=== PATIENT | female | born 1970 | race Caucasian/White ===

== ENCOUNTER 2019-01-17 04:57 | Inpatient (IN) | payer OTHER ==
[2019-01-17] MEDS ORDERED: BISACODYL (EC) 5 MG TAB PO (06:00)
[2019-01-17] MEDS ORDERED: NACL 0.9% 3 ML SYG IV (06:00)
[2019-01-17] MEDS ORDERED: NITROGLYCERIN (SL) 0.4 MG TAB SL (06:00)
[2019-01-17] MEDS ORDERED: DOCUSATE SODIUM 100 MG CAP PO (06:00)
[2019-01-17 08:19] LABS: ADD MAN DIFF? NO
[2019-01-17 08:21] LABS: BASOPHILS % 0.6 % (0.0-2.0); EOSINOPHILS # 0.2 10^3/ul (0.0-0.5); EOSINOPHILS % 3.4 % (0.0-7.0); HEMATOCRIT 37.5 % (37.0-47.0); HEMOGLOBIN 11.9 g/dl (12.0-16.0); LYMPHOCYTES # 2.5 10^3/ul (0.8-2.9); LYMPHOCYTES % 35.1 % (15.0-51.0); MEAN CORPUSCULAR HEMOGLOBIN 27.9 pg (29.0-33.0); MEAN CORPUSCULAR HGB CONC 31.7 g/dl (32.0-37.0); MEAN CORPUSCULAR VOLUME 87.8 fl (82.0-101.0); MEAN PLATELET VOLUME 9.3 fl (7.4-10.4); MONOCYTE # 0.3 10^3/ul (0.3-0.9); MONOCYTES % 4.9 % (0.0-11.0); NEUTROPHIL # 3.9 10^3/ul (1.6-7.5); NEUTROPHILS % 55.7 % (39.0-77.0); PLATELET COUNT 273 10^3/UL (140-415); RED BLOOD COUNT 4.27 10^6/ul (4.20-5.40); RED CELL DISTRIBUTION WIDTH 13.5 % (11.5-14.5)
[2019-01-17 08:32] LABS: HEMOGLOBIN A1C 6.8 % (0-5.9)
[2019-01-17] MEDS: CHOLECALCIFEROL 1,000 UNIT TAB PO (08:37)
[2019-01-17] MEDS: ACETAMINOPHEN 325 MG TAB PO ×2 (08:37→18:28)
[2019-01-17] MEDS: LISINOPRIL 10 MG TAB PO (08:37)
[2019-01-17 08:49] LABS: ALANINE AMINOTRANSFERASE 47 IU/L (13-69); ALBUMIN/GLOBULIN RATIO 1.33; ALKALINE PHOSPHATASE 70 IU/L (42-121); ANION GAP 9 (5-13); ASPARTATE AMINO TRANSFERASE 33 IU/L (15-46); BILIRUBIN,INDIRECT 0.4 mg/dl (0-1.1); BILIRUBIN,TOTAL 0.4 mg/dl (0.2-1.3); BLOOD UREA NITROGEN 14 mg/dl (7-20); CALCIUM 8.8 mg/dl (8.4-10.2); CARBON DIOXIDE 25 mmol/L (21-31); CHLORIDE 105 mmol/L (97-110); CHOL/HDL RATIO 2.9 RATIO; CHOLESTEROL 154 mg/dl (100-200); CREATINE KINASE 43 IU/L (23-200); CREATININE 0.54 mg/dl (0.44-1.00); Estimated GFR > 60 mL/min (>60); GLUCOSE 147 mg/dl (70-220); HDL CHOLESTEROL 52 mg/dl (37-92); LDL CHOLESTEROL,CALCULATED 51 mg/dl; SODIUM 139 mmol/L (135-144); TRIGLYCERIDES 254 mg/dl (0-149)
[2019-01-17 09:02] LABS: CK INDEX 0.5; CK-MB < 0.22 ng/ml (0.0-2.4); TROPONIN-I < 0.012 ng/ml (0.000-0.120)
[2019-01-17] MEDS: CEFTRIAXONE 1 GM/50 ML (PMX) 50 ML IVPB (11:02)
[2019-01-17 12:33] LABS: CREATINE KINASE 41 IU/L (23-200)
[2019-01-17 12:45] LABS: CK INDEX 0.5; CK-MB < 0.22 ng/ml (0.0-2.4); TROPONIN-I < 0.012 ng/ml (0.000-0.120)
[2019-01-17] MEDS: ATORVASTATIN 40 MG TAB PO (20:16)
[2019-01-17] MEDS: KETOROLAC 15 MG INJ IV (21:43)
[2019-01-17] MEDS: AMITRIPTYLINE 25 MG TAB PO (22:59)
[2019-01-18 06:11] LABS: ADD MAN DIFF? NO
[2019-01-18 06:22] LABS: BASOPHILS % 0.5 % (0.0-2.0); EOSINOPHILS # 0.2 10^3/ul (0.0-0.5); HEMATOCRIT 39.2 % (37.0-47.0); HEMOGLOBIN 12.2 g/dl (12.0-16.0); LYMPHOCYTES # 2.1 10^3/ul (0.8-2.9); LYMPHOCYTES % 37.9 % (15.0-51.0); MEAN CORPUSCULAR HEMOGLOBIN 27.6 pg (29.0-33.0); MEAN CORPUSCULAR HGB CONC 31.1 g/dl (32.0-37.0); MEAN CORPUSCULAR VOLUME 88.7 fl (82.0-101.0); MEAN PLATELET VOLUME 9.7 fl (7.4-10.4); MONOCYTE # 0.4 10^3/ul (0.3-0.9); MONOCYTES % 6.4 % (0.0-11.0); NEUTROPHIL # 2.9 10^3/ul (1.6-7.5); NEUTROPHILS % 51.8 % (39.0-77.0); PLATELET COUNT 265 10^3/UL (140-415); RED BLOOD COUNT 4.42 10^6/ul (4.20-5.40); RED CELL DISTRIBUTION WIDTH 13.1 % (11.5-14.5)
[2019-01-18 06:22] LABS: WHITE BLOOD COUNT 5.6 10^3/ul (4.8-10.8)
[2019-01-18 06:47] LABS: CREATINE KINASE 33 IU/L (23-200)
[2019-01-18 06:53] LABS: ALANINE AMINOTRANSFERASE 50 IU/L (13-69); ALBUMIN 3.9 g/dl (3.3-4.9); ALBUMIN/GLOBULIN RATIO 1.39; ALKALINE PHOSPHATASE 64 IU/L (42-121); ANION GAP 8 (5-13); ASPARTATE AMINO TRANSFERASE 31 IU/L (15-46); BILIRUBIN,INDIRECT 0.5 mg/dl (0-1.1); BILIRUBIN,TOTAL 0.5 mg/dl (0.2-1.3); BLOOD UREA NITROGEN 17 mg/dl (7-20); CALCIUM 9.6 mg/dl (8.4-10.2); CARBON DIOXIDE 25 mmol/L (21-31); CHLORIDE 102 mmol/L (97-110); CHOL/HDL RATIO 4.1 RATIO; CHOLESTEROL 189 mg/dl (100-200); CREATININE 0.57 mg/dl (0.44-1.00); Estimated GFR > 60 mL/min (>60); GLUCOSE 170 mg/dl (70-220); HDL CHOLESTEROL 46 mg/dl (37-92); LDL CHOLESTEROL,CALCULATED 60 mg/dl; POTASSIUM 4.8 mmol/L (3.5-5.1); SODIUM 135 mmol/L (135-144); TOTAL PROTEIN 6.7 g/dl (6.1-8.1); TRIGLYCERIDES 413 mg/dl (0-149)
[2019-01-18 07:01] LABS: CK INDEX 0.7; CK-MB 0.24 ng/ml (0.0-2.4); TROPONIN-I < 0.012 ng/ml (0.000-0.120)
[2019-01-18 07:17] LABS: ANION GAP 8 (5-13); BLOOD UREA NITROGEN 16 mg/dl (7-20); CALCIUM 9.6 mg/dl (8.4-10.2); CARBON DIOXIDE 25 mmol/L (21-31); CHLORIDE 102 mmol/L (97-110); CREATININE 0.58 mg/dl (0.44-1.00); Estimated GFR > 60 mL/min (>60); GLUCOSE 168 mg/dl (70-220); MAGNESIUM 1.8 mg/dl (1.7-2.5); PHOSPHORUS 4.4 mg/dl (2.5-4.9); POTASSIUM 4.6 mmol/L (3.5-5.1); SODIUM 135 mmol/L (135-144)
[2019-01-18] MEDS: REGADENOSON 0.4 MG/5 ML SYG (09:27)
[2019-01-18] MEDS ORDERED: CIPROFLOXACIN 500 MG TAB PO (09:30)
[2019-01-18] MEDS: CHOLECALCIFEROL 1,000 UNIT TAB PO (11:28)
[2019-01-18] MEDS: LISINOPRIL 10 MG TAB PO (11:28)
[2019-01-18] MEDS: ACETAMINOPHEN 325 MG TAB PO ×2 (11:28→18:26)
[2019-01-18] MEDS: CIPROFLOXACIN 250 MG TAB PO ×2 (11:28→18:26)
[2019-01-18] MEDS: ONDANSETRON 4 MG INJ IV (11:31)
[2019-01-18] MEDS ORDERED: ZOLPIDEM 5 MG TAB PO (12:00)
[2019-01-18] MEDS ORDERED: LIDOCAINE 5% PATCH TD (13:00)
[2019-01-18] MEDS: METHOCARBAMOL 750 MG TAB PO ×2 (14:51→20:14)
[2019-01-18] MEDS: ASPIRIN 81 MG TAB PO (14:54)
[2019-01-18] MEDS: ATORVASTATIN 40 MG TAB PO (20:14)
[2019-01-18] MEDS: ACET/BUTAL/CAFF TAB PO (20:14)
[2019-01-18] MEDS: AMITRIPTYLINE 25 MG TAB PO (20:14)
[2019-01-19] MEDS: ACET/BUTAL/CAFF TAB PO (02:36)
[2019-01-19] MEDS: ONDANSETRON 4 MG INJ IV (02:36)
[2019-01-19] MEDS: METHOCARBAMOL 750 MG TAB PO ×2 (04:02→11:25)
[2019-01-19 05:52] LABS: ADD MAN DIFF? NO
[2019-01-19 06:00] LABS: WHITE BLOOD COUNT 5.6 10^3/ul (4.8-10.8)
[2019-01-19 06:00] LABS: BASOPHIL # 0.1 10^3/ul (0.0-0.1); BASOPHILS % 0.9 % (0.0-2.0); EOSINOPHILS # 0.2 10^3/ul (0.0-0.5); EOSINOPHILS % 3.4 % (0.0-7.0); HEMATOCRIT 37.7 % (37.0-47.0); HEMOGLOBIN 12.1 g/dl (12.0-16.0); LYMPHOCYTES # 2.4 10^3/ul (0.8-2.9); LYMPHOCYTES % 43.3 % (15.0-51.0); MEAN CORPUSCULAR HEMOGLOBIN 28.1 pg (29.0-33.0); MEAN CORPUSCULAR HGB CONC 32.1 g/dl (32.0-37.0); MEAN CORPUSCULAR VOLUME 87.7 fl (82.0-101.0); MEAN PLATELET VOLUME 9.6 fl (7.4-10.4); MONOCYTE # 0.3 10^3/ul (0.3-0.9); MONOCYTES % 5.5 % (0.0-11.0); NEUTROPHIL # 2.6 10^3/ul (1.6-7.5); NEUTROPHILS % 46.7 % (39.0-77.0); PLATELET COUNT 255 10^3/UL (140-415); RED CELL DISTRIBUTION WIDTH 13.2 % (11.5-14.5)
[2019-01-19] MEDS: CIPROFLOXACIN 250 MG TAB PO (06:25)
[2019-01-19 06:28] LABS: ANION GAP 9 (5-13); BLOOD UREA NITROGEN 18 mg/dl (7-20); CALCIUM 9.3 mg/dl (8.4-10.2); CARBON DIOXIDE 27 mmol/L (21-31); CHLORIDE 103 mmol/L (97-110); CREATININE 0.61 mg/dl (0.44-1.00); Estimated GFR > 60 mL/min (>60); GLUCOSE 168 mg/dl (70-220); MAGNESIUM 1.8 mg/dl (1.7-2.5); PHOSPHORUS 4.7 mg/dl (2.5-4.9); POTASSIUM 4.3 mmol/L (3.5-5.1); SODIUM 139 mmol/L (135-144)
[2019-01-19] MEDS: CHOLECALCIFEROL 1,000 UNIT TAB PO (08:46)
[2019-01-19] MEDS: LISINOPRIL 10 MG TAB PO (08:46)
[2019-01-19] MEDS: ASPIRIN 81 MG TAB PO (08:46)
== END 2019-01-19 14:00 | disposition home or self-care (01) | DRG 313 ==
LOC: 6WM 04:57
DX: R07.89 Other chest pain (principal); N39.0 Urinary tract infection, site not specified; R51 Headache; E78.5 Hyperlipidemia, unspecified; I10 Essential (primary) hypertension; E66.9 Obesity, unspecified; Z68.27 Body mass index [BMI] 27.0-27.9, adult; K21.9 Gastro-esophageal reflux disease without esophagitis
CPT/HCPCS: 78452; 80048; 80053; 80061; 82550; 82553; 83036; 83735; 84100; 84443; 84484; 85025; 87081; 93005; 93017; 93306; 99217; G0378

== ENCOUNTER 2019-01-22 16:35 | Emergency (ER) | payer OTHER ==
[2019-01-22 18:45] LABS: ADD UMIC YES; UR ASCORBIC ACID NEGATIVE (NEGATIVE); UR BACTERIA FEW /HPF (NONE SEEN); UR BILIRUBIN (Dip) NEGATIVE (NEGATIVE); UR BLOOD (Dip) NEGATIVE (NEGATIVE); UR CLARITY CLOUDY (CLEAR); UR COLOR YELLOW (YELLOW); UR GLUCOSE (Dip) NEGATIVE (NEGATIVE); UR KETONES (Dip) NEGATIVE (NEGATIVE); UR LEUKOCYTE ESTERASE (Dip) 2+ Leu/ul (NEGATIVE); UR NITRITE (Dip) NEGATIVE (NEGATIVE); UR NONSQUAMOUS EPITHELIAL CELL 5 /HPF (NONE SEEN); UR RBC 1 /HPF (0-5); UR SPECIFIC GRAVITY (Dip) 1.006 (1.003-1.030); UR SQUAMOUS EPITHELIAL CELL MANY /HPF (FEW); UR TOTAL PROTEIN (Dip) NEGATIVE (NEGATIVE); UR UROBILINOGEN (Dip) NEGATIVE (NEGATIVE); UR WBC 7 /HPF (0-5)
[2019-01-22 18:46] LABS: ADD MAN DIFF? NO
[2019-01-22 18:48] LABS: BASOPHIL # 0.1 10^3/ul (0.0-0.1); BASOPHILS % 0.5 % (0.0-2.0); EOSINOPHILS # 0.1 10^3/ul (0.0-0.5); EOSINOPHILS % 0.6 % (0.0-7.0); HEMATOCRIT 36.4 % (37.0-47.0); HEMOGLOBIN 11.5 g/dl (12.0-16.0); LYMPHOCYTES # 2.8 10^3/ul (0.8-2.9); LYMPHOCYTES % 29.7 % (15.0-51.0); MEAN CORPUSCULAR HEMOGLOBIN 27.8 pg (29.0-33.0); MEAN CORPUSCULAR HGB CONC 31.6 g/dl (32.0-37.0); MEAN CORPUSCULAR VOLUME 88.1 fl (82.0-101.0); MEAN PLATELET VOLUME 9.4 fl (7.4-10.4); MONOCYTE # 0.5 10^3/ul (0.3-0.9); MONOCYTES % 5.6 % (0.0-11.0); NEUTROPHILS % 63.3 % (39.0-77.0); PLATELET COUNT 266 10^3/UL (140-415); RED BLOOD COUNT 4.13 10^6/ul (4.20-5.40); RED CELL DISTRIBUTION WIDTH 13.2 % (11.5-14.5)
[2019-01-22 18:48] LABS: WHITE BLOOD COUNT 9.4 10^3/ul (4.8-10.8)
[2019-01-22] MEDS: KETOROLAC 15 MG INJ IV (18:50)
[2019-01-22] MEDS: ONDANSETRON 4 MG INJ IV (18:50)
[2019-01-22] MEDS: BELLADONNA/PHENOBARBITAL TAB PO (18:50)
[2019-01-22] MEDS: LIDOCAINE/MYLANTA 40 ML BTL PO (18:50)
[2019-01-22] MEDS: SOD CHLORIDE 0.9% 1,000 ML IV (18:50)
[2019-01-22] MEDS: FAMOTIDINE 20 MG TAB PO (18:50)
[2019-01-22 19:10] LABS: ALANINE AMINOTRANSFERASE 40 IU/L (13-69); ALBUMIN 4.5 g/dl (3.3-4.9); ALBUMIN/GLOBULIN RATIO 1.28; ALKALINE PHOSPHATASE 78 IU/L (42-121); ANION GAP 11 (5-13); ASPARTATE AMINO TRANSFERASE 20 IU/L (15-46); BILIRUBIN,INDIRECT 0.2 mg/dl (0-1.1); BILIRUBIN,TOTAL 0.2 mg/dl (0.2-1.3); BLOOD UREA NITROGEN 11 mg/dl (7-20); CALCIUM 9.4 mg/dl (8.4-10.2); CARBON DIOXIDE 27 mmol/L (21-31); CHLORIDE 104 mmol/L (97-110); CREATININE 0.57 mg/dl (0.44-1.00); Estimated GFR > 60 mL/min (>60); GLUCOSE 101 mg/dl (70-220); LIPASE 30 U/L (23-300); POTASSIUM 3.3 mmol/L (3.5-5.1); SODIUM 142 mmol/L (135-144)
[2019-01-22] MEDS: CEFTRIAXONE 1 GM/50 ML (PMX) 50 ML IVPB (19:34)
[2019-01-22] MEDS: ENALAPRILAT 1.25 MG INJ IV (19:54)
== END 2019-01-22 19:56 | disposition home or self-care (01) ==
LOC: E/R 16:35
DX: N39.0 Urinary tract infection, site not specified (principal); I10 Essential (primary) hypertension
CPT/HCPCS: 36415; 80053; 81001; 83690; 85025; 96374; 96375; 99284-25